=== PATIENT | female | born 1955 | race Caucasian/White ===

== ENCOUNTER 2019-01-06 11:48 | Emergency (ER) | payer OTHER ==
[2019-01-06 12:06] VITALS: BP 141/75
--- NOTE | 2019-01-06 12:18 | UC ---
Respiratory Complaint HPI - HPI Summary HPI Summary: The patient presents to urgent care with her . Patient with 5 days progressive sinus congestion postnasal drip sore throat and cough. Patient states her cough is productive yellow sputum. Patient does have wheezing. Patient has shortness of breath. No chest pain. No nausea vomiting. Patient with a tight temperature. Decreased by mouth. Patient's medications reviewed this visit. Patient does not have a history of lung disease. Patient does have a history of coronary disease for which she's had stents. - History of Current Complaint Chief Complaint: UCRespiratory Stated Complaint: COUGH Time Seen by Provider: 01/06/19 12:09 Hx Obtained From: Patient ?: No Severity Initially: Mild Severity Currently: Mild Pain Intensity: 0 - Allergies/Home Medications Allergies/Adverse Reactions: Allergies Allergy/AdvReac Type Severity Reaction Status Date / Time No Known Allergies Allergy Verified 01/06/19 12:06 PMH/Surg Hx/FS Hx/Imm Hx Previously Healthy: Yes Other History Of: Anticoagulant Therapy Negative For: HIV, Hepatitis B, Hepatitis C - Surgical History Surgical History: Yes Surgery Procedure, Year, and Place: appendix-THREE HEART STENTS PLACED-10/2015 - Family History Known Family History: Positive: Cardiac Disease Negative: Diabetes - Social History Alcohol Use: Occasionally Substance Use Type: None Smoking Status (MU): Former Smoker Type: Cigarettes Length of Time of Smoking/Using Tobacco: 15 years Have You Smoked in the Last Year: Yes When Did the Patient Quit Smoking/Using Tobacco: 10/20 - Immunization History Most Recent Influenza Vaccination: NONE Most Recent Tetanus Shot: UNKNOWN Most Recent Pneumonia Vaccination: UNKNOWN Review of Systems All Other Systems Reviewed And Are Negative: Yes Constitutional: Positive: Fatigue ENT: Positive: Nasal Discharge, Sinus Congestion, Sinus Pain/Tenderness Respiratory: Positive: Cough, Other - Wheeze Physical Exam - Summary Physical Exam Summary: Vital Signs Reviewed: Yes A+Ox3, no distress Eyes: Conjunctiva Clear, SONIA. EOM intact and full ENT: Hearing grossly normal TM x 2 clear, turbinates inflammed and boggy, + PND mmoist, uvula midline, no exudate, no erythema Neck: Positive: Supple Respiratory: Positive: coarse cough, wheeze, course cough, rhonchi LLQ sentences interrupted with coughing Cardiovascular: RRR nl s1, s2 no m/r CBT <2 sec abd soft + BS nt/nd no guarding, no distension Musculoskeletal Exam: BERRY x 4 without difficulty Strength Intact, ROM Intact Neurological: Positive: Alert, + sensation throughout Psychological: Positive: Normal Response To examiner Skin: Positive: no rash, no ecchymosis Triage Information Reviewed: Yes Vital Signs: Initial Vital Signs Temp 98.4 F 01/06/19 12:04 Pulse 76 01/06/19 12:04 Resp 16 01/06/19 12:04 BP 141/75 01/06/19 12:04 Pulse Ox 96 01/06/19 12:04 Diagnostics - Radiology No standard instances Radiology Interpretation Completed By: Radiologist - Patient Name: PRATEEK ALEMAN Medical Record#: [id number] Ordering Physician: Cecy Shook MD Acct.#: [id number] : 1955 Age: 63 Sex: F Location: [facility] Exam Date: 01/06/19 1246 ADM Status: REG ER Order Information: CHEST PA & LAT 2 VWS Accession Number: [id number] CPT: 61508 INDICATION: Cough, wheeze and rhonchi left base. COMPARISON: Comparison is made to prior study from June 16, 2015. TECHNIQUE: Dual-energy PA and lateral views of the chest were obtained. FINDINGS: The heart is within normal limits in size. Mediastinal and hilar contours appear within normal limits. The lungs are underinflated. There are small infiltrates in both lower lobes. No pleural effusion is seen. IMPRESSION : LOW LUNG VOLUMES, SMALL BILATERAL LOWER LOBE INFILTRATES. <Electronically signed by Ebenezer Myers MD in OV> 01/06/19 1303 Dictated By: Ebenezer Myers MD Dictated Date/ Time: 01/06/19 1302 Transcribed Date/Time: 01/06/19 1302 Copy to: CC: Brenda Mcclain DO; Cecy Shook MD Imaging - [facility] Imaging - [place] [facility] [place] [facility] [address] [facility] [address] [place] [address] ) ph ([phone]) ph ([phone]) This report is only to be considered final once signed by the Provider(s) as displayed in the "<Electronically Signed by >" field (s). Absence of a signature indicates the report is in a draft status and still needs to be finalized. In the event this document was created by someone other than the signing Provider, the individual initiating the document will be listed in the "Entered by:" or "Dictated by:" lewis. 1 of Re-Evaluation - Re-Evaluation First Eval Change: Improved - Pt markedly improved following neb + BS through - coughing less pt states feels better Will Rx abx, mdi secretion precaution return precaution hydrate f/u with pcp - pt has an appt on 01/15/19 with pcp Return precautions discussed pt comfortable and in agreement with plan Respiratory Course/Dx - Course Course Of Treatment: Patient presents to urgent care with 5 days progressive congestion cough wheeze. Patient states she is bringing up yellow sputum. Patient with tactile fevers. Patient with decreased energy. Patient took Coricidin once with little improvement. Patient without a history of lung disease. Patient denies shortness of breath. Patient did not get the flu shot this year. On exam vital signs are stable. Patient with a coarse intermittent cough. Patient with sinus congestion and postnasal drip. Patient does not have a smoking history. Patient's is here with similar symptoms. On exam vital signs are stable. Patient does have a coarse cough. Patient was sinus congestion postnasal drip and diffuse wheezing. Patient does have rhonchi in the left base. All given a DuoNeb Integra chest x-ray. Anticipate patient will receive a bolus of an MDI to go home. Patient can't working up well. We'll reassess after neb. BP mildly elevated - history of same - recommend f/u with pcp - Differential Dx/Diagnosis Provider Diagnosis: PNA (pneumonia) Discharge ED - Sign-Out/Discharge Documenting (check all that apply): Patient Departure All imaging exams completed and their final reports reviewed: Yes - Discharge Plan Condition: Stable Disposition: HOME Prescriptions: Albuterol HFA INHALER* [Ventolin HFA Inhaler*] 2 puff INH Q4H PRN #1 mdi PRN Reason: wheeze Benzonatate CAP* [Tessalon 100 MG CAP*] 100 mg PO TID PRN #21 cap PRN Reason: Cough DOXYcycline CAP(*) [DOXYcycline 100MG CAP(*)] 100 mg PO BID #20 cap Inhaler, Assist Devices [Aerochamber Mv] 1 each PO Q4HR #1 spacer Patient Education Materials: Community Acquired Pneumonia (ED) Referrals: Brenda Mcclain DO [Primary Care Provider] - Additional Instructions: - Stay well hydrated. Drink plenty of non-alcoholic, non-caffinated beverages. - Alternate ibuprofen (Advil, Motrin) 600mg and Tylenol every 3 hours for pain or fever. Take with food. Do NOT take for more than 4-5 days. - These infections are spread by secretions - do NOT share eating or drinking utensils - clean items you share with other people such as cell phones, computer mouse, TV remote, computer tablets,etc. Once you have been antibiotics for 2 days, change your toothbrush and your pillowcase. - get plenty of restful sleep - humidify the air in the room where you sleep - boil water, run a hot steam shower, vaporizer, cups of water by heat register - Take cough medication as prescribed - use your inhaler - 2 puffs every 4 hours today and tomorrow, then every 4 hours as needed - contact your doctor or go to the emergency department if you develop shortness of breath, vomiting, uncontrolled fevers or any other concerns - Billing Disposition and Condition Condition: STABLE Disposition: Home
[2019-01-06] MEDS ORDERED: Albuterol/Ipratropium NEB.SOL* Albuterol 2.5 MG/Ipratropium 0.5 MG 3 ML INH ONE (12:46)
== END 2019-01-06 13:33 | disposition home or self-care (01) ==
LOC: UCEAST 11:48
DX: J18.9 Pneumonia, unspecified organism (principal); R09.81 Nasal congestion; R09.82 Postnasal drip; R03.0 Elevated blood-pressure reading, without diagnosis of hypertension; Z87.891 Personal history of nicotine dependence
CPT/HCPCS: 71046; 99212; A9270-GY; G0463

== ENCOUNTER 2019-03-25 21:15 | Emergency (ER) | payer OTHER ==
--- NOTE | 2019-03-25 21:26 | UC ---
Lower Extremity/Ankle HPI - HPI Summary HPI Summary: Patient is a 63-year-old female presenting with for complaint of pain in left lower back and left buttock since this morning. Patient states she woke up and shortly after began having the pain. Describes it as sharp shooting pain that shoots down from her buttock, into the back of her leg, and down into her foot at times. The patient denies trauma or injury. He states pain is worse with sitting down. He also notes increased pain with walking. States pain slightly better when standing still and leaning forward slightly. Denies any numbness. Denies decreased range of motion. Denies difficulty ambulating. Denies incontinence. Patient states she was diagnosed with herniated lumbar disc approximately 15 years ago. Patient states her doctor told her she would need surgery but she didn't want so she began walking and states that that made her pain go away. Denies any episodes since. Patient states that she took ibuprofen around 1600 this afternoon with little relief. Patient also noted current daily aspirin for cardiac disease which she states she takes every morning. - History of Current Complaint Stated Complaint: BACK, LEG PAIN Hx Obtained From: Patient Onset/Duration: Sudden Onset Severity Initially: Severe Severity Currently: Severe Pain Intensity: 10 Pain Scale Used: 0-10 Numeric - Allergies/Home Medications Allergies/Adverse Reactions: Allergies Allergy/AdvReac Type Severity Reaction Status Date / Time No Known Allergies Allergy Verified 03/25/19 21:33 Home Medications: Home Medications Aspirin 81 mg CHEW TAB* 81 mg PO DAILY 03/25/19 [History Confirmed 03/25/19] Metoprolol Tartrate TAB* [Lopressor TAB*] 25 mg PO DAILY 03/25/19 [History Confirmed 03/25/19] PMH/Surg Hx/FS Hx/Imm Hx Cardiovascular History: Cardiac Disease, Hypertension Other History Of: Anticoagulant Therapy Negative For: HIV, Hepatitis B, Hepatitis C - Surgical History Surgical History: Yes Surgery Procedure, Year, and Place: appendix-THREE HEART STENTS PLACED-10/2015 - Family History Known Family History: Positive: Cardiac Disease Negative: Diabetes - Social History Alcohol Use: Occasionally Substance Use Type: None Smoking Status (MU): Former Smoker Type: Cigarettes Length of Time of Smoking/Using Tobacco: 15 years Have You Smoked in the Last Year: Yes When Did the Patient Quit Smoking/Using Tobacco: 10/20 - Immunization History Most Recent Influenza Vaccination: NONE Most Recent Tetanus Shot: UNKNOWN Most Recent Pneumonia Vaccination: UNKNOWN Review of Systems All Other Systems Reviewed And Are Negative: No Constitutional: Positive: Negative Skin: Positive: Negative. Negative: Bruising Respiratory: Positive: Negative Cardiovascular: Positive: Negative. Negative: Chest Pain Gastrointestinal: Positive: Negative. Negative: Vomiting, Nausea Genitourinary: Positive: Negative Neurovascular: Positive: Negative Musculoskeletal: Positive: Arthralgia - L lower back pain radiating down leg into foot. Negative: Decreased ROM, Edema Neurological: Positive: Negative. Negative: Weakness, Paresthesia, Numbness Physical Exam Triage Information Reviewed: Yes Appearance: Well-Appearing, Well-Nourished, Pain Distress - patient appears uncomforable sitting, so often gets up to stand Vital Signs: Vital Signs (72 hours) 03/25/19 21:28 Temperature 99.4 F Pulse Rate 76 Respiratory 18 Rate Blood Pressure 184/103 (mmHg) O2 Sat by Pulse 97 Oximetry Vital Signs Reviewed: Yes Eyes: Positive: Conjunctiva Clear ENT: Positive: Hearing grossly normal Neck: Positive: Supple Respiratory Exam: Normal Respiratory: Positive: Lungs clear, Normal breath sounds, No respiratory distress Cardiovascular Exam: Normal Cardiovascular: Positive: RRR, Pulses Normal - strong pedal pulses, Brisk Capillary Refill - <2 sec Musculoskeletal: Positive: Strength Intact, No Edema, ROM Limited @ - limited hip flexion d/t pain, Other: - observed patient walking slightly favoring L leg. no midline tenderness of lumbarsacral spine. no tenderness to palpation of L buttock or hip Neurological Exam: Other - sensation grossly intact Neurological: Positive: Alert Psychological: Positive: Age Appropriate Behavior Skin Exam: Normal - no erythema or ecchymosis Diagnostics - Radiology lumbarsacral Radiology Interpretation Completed By: ED Physician Summary of Radiographic Findings: no acture process Lower Extremity Course/Dx - Course Course Of Treatment: Informed patient that final read of her radiographs of the obtaining the morning she'll be notified if any abnormalities not discussed tonight. Patient received Toradol and Flexeril here for pain relief. Patient's drove her and agreed to drive her home. Also provided patient with prescription for Flexeril to take at bedtime as needed. Instructed patient to continue with Tylenol for pain relief tomorrow and to avoid use of ibuprofen since she is taking daily aspirin. She opted to apply ice and/or heat and to perform mild stretches daily to help relieve pain. Instructed to follow up with sports medicine for further evaluation and treatment of pain. Instructed to go to ED with any new or worsening symptoms. Patient voiced understanding and agreed with the treatment plan. - Differential Dx/Diagnosis Provider Diagnosis: Lumbar back pain with radiculopathy affecting left lower extremity Discharge ED - Sign-Out/Discharge Documenting (check all that apply): Patient Departure All imaging exams completed and their final reports reviewed: No - Discharge Plan Condition: Stable Disposition: HOME Prescriptions: Cyclobenzaprine TAB* [Flexeril 10 MG TAB*] 10 mg PO BEDTIME PRN #7 tab PRN Reason: Spasms - Back Patient Education Materials: Lumbar Radiculopathy (ED) Referrals: [facility] [Outside] - As Soon As Possible Additional Instructions: As discussed, your radiograph was reviewed by the provider that treated you tonight. It will be read by a radiologist tomorrow morning. If there is a finding other than that discussed with you today, you will receive a call from a care provider. You received a shot of Toradol here at the urgent care. You may continue with tylenol in the morning with 400mg every 6-8 hours as needed for pain relief. Do not take ibuprofen if you are taking aspirin daily. This would increase your risk for bleeding. You may also take Flexeril at bedtime. You may apply ice and/or heat to the area where your pain is greatest. You may also buy over the counter lidocaine patches (Salonpas) and plan on the affected area for pain relief. Mild stretching is recommended daily. Follow up with the referral to sports medicine listed below for further evaluation and treatment of your pain. Go to the emergency room with any new or worsening symptoms. - Billing Disposition and Condition Condition: STABLE Disposition: Home
[2019-03-25 21:33] VITALS: BP 184/103
[2019-03-25] MEDS ORDERED: Ketorolac *IM* INJ* 60 MG/2 ML VIAL IM ONE (22:07)
[2019-03-25] MEDS ORDERED: Cyclobenzaprine TAB* 10 MG PO ONE (22:09)
--- NOTE | 2019-03-26 15:39 | UC ---
- Progress Note Progress Note: wet read correct Course/Dx - Diagnoses Provider Diagnoses: Lumbar back pain with radiculopathy affecting left lower extremity Discharge ED - Sign-Out/Discharge Documenting (check all that apply): Post-Discharge Follow Up All imaging exams completed and their final reports reviewed: Yes - Discharge Plan Condition: Stable Disposition: HOME Prescriptions: Cyclobenzaprine TAB* [Flexeril 10 MG TAB*] 10 mg PO BEDTIME PRN #7 tab PRN Reason: Spasms - Back Patient Education Materials: Lumbar Radiculopathy (ED) Referrals: [facility] [Outside] - As Soon As Possible Additional Instructions: As discussed, your radiograph was reviewed by the provider that treated you tonight. It will be read by a radiologist tomorrow morning. If there is a finding other than that discussed with you today, you will receive a call from a care provider. You received a shot of Toradol here at the urgent care. You may continue with tylenol in the morning with 400mg every 6-8 hours as needed for pain relief. Do not take ibuprofen if you are taking aspirin daily. This would increase your risk for bleeding. You may also take Flexeril at bedtime. You may apply ice and/or heat to the area where your pain is greatest. You may also buy over the counter lidocaine patches (Salonpas) and plan on the affected area for pain relief. Mild stretching is recommended daily. Follow up with the referral to sports medicine listed below for further evaluation and treatment of your pain. Go to the emergency room with any new or worsening symptoms. - Billing Disposition and Condition Condition: STABLE Disposition: Home
== END 2019-03-25 22:40 | disposition home or self-care (01) ==
LOC: UCEAST 21:15
DX: M54.16 Radiculopathy, lumbar region (principal); I10 Essential (primary) hypertension; Z87.891 Personal history of nicotine dependence; Z79.899 Other long term (current) drug therapy; Z95.818 Presence of other cardiac implants and grafts; Z79.82 Long term (current) use of aspirin
CPT/HCPCS: 72110; 96372; 99212; A9270-GY; G0463; J1885